=== PATIENT | female | born 2000 | race Caucasian/White ===

== ENCOUNTER 2022-12-14 10:08 | Emergency (ER) | payer BC ==
[2022-12-14] MEDS ORDERED: Ketorolac Tromethamine 30 MG/ML VIAL ONE (11:59)
[2022-12-14] MEDS ORDERED: Cyclobenzaprine 10 MG TAB ONE (11:59)
== END 2022-12-14 12:54 | disposition home or self-care (01) ==
LOC: ERS 10:08
DX: S09.90XA Unspecified injury of head, initial encounter (principal); M25.512 Pain in left shoulder; W19.XXXA Unspecified fall, initial encounter
CPT/HCPCS: 70450; 72125; 72128; 96372; J1885